=== PATIENT | female | born 1995 | race African-American/Black ===

== ENCOUNTER 2019-10-15 11:37 | Emergency (ER) | payer OTHER ==
[~2019-10-15] VITALS: Ht 167.6 cm; Wt 59.0 kg
[2019-10-15 11:47] VITALS: BP 143/82
--- NOTE | 2019-10-15 11:48 | NUR ---
Meryl stein in [facility] - 10/15/19 at 1239 by VINICIUSX Patient being evaluated by DR. CHAVIRA at bedside.
--- NOTE | 2019-10-15 12:09 | NUR ---
PT AMBULATED TO ER BED 05
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
[2019-10-15] MEDS ORDERED: KETOROLAC 60 MG/2 ML VIAL IM ONE (12:25)
--- NOTE | 2019-10-15 12:25 | NUR ---
Patient being evaluated by DR. CHAVIRA at bedside.
--- NOTE | 2019-10-15 12:50 | NUR ---
PATIENT IS TAKEN TO X-RAY
[2019-10-15 14:12] VITALS: BP 122/78
--- NOTE | 2019-10-15 14:12 | NUR ---
Patient discharged to home. Written and verbal after care instructions given and explained. Rx of motrin given. Patient educated on indication of medication including possible reaction and side effects. All questions addressed prior to discharge. ID band removed. Patient advised to follow up with PMD.
== END 2019-10-15 14:12 | disposition home or self-care (01) ==
LOC: MED 11:37
DX: M25.531 Pain in right wrist (principal); M25.532 Pain in left wrist; M79.641 Pain in right hand; M79.642 Pain in left hand; R07.89 Other chest pain; V89.2XXA Person injured in unspecified motor-vehicle accident, traffic, initial encounter; Y93.89 Activity, other specified; Y92.89 Other specified places as the place of occurrence of the external cause; Y99.8 Other external cause status
CPT/HCPCS: 29125; 73110; 73120; 73130; 90471; 90715; 96372; 99283; J1885